=== PATIENT | female | born 1985 ===

== ENCOUNTER 2018-05-15 06:21 | Day surgery (SDC) | payer OTHER ==
[2018-05-07 16:43] VITALS: BMI 56.1
[2018-05-15] MEDS ORDERED: Lactated Ringer's 1,000 ML IV ONE (07:25)
[2018-05-15] MEDS ORDERED: Propofol 10 mg/ml Inj (20 ML) ONE (07:26)
[2018-05-15] MEDS ORDERED: Lidocaine 4% (Laryng-O-Jet) Kit MM ONE ×2 (07:26→08:10)
[2018-05-15] MEDS ORDERED: Succinylcholine Chloride 20 mg/ml Syr (5 ml) IV ONE (07:26)
[2018-05-15] MEDS ORDERED: Midazolam 2 MG/2 ML VIAL ONE (07:26)
[2018-05-15] MEDS ORDERED: Ropivacaine 0.5% 30ML IV ONE (07:29)
--- NOTE | 2018-05-15 07:35 | CP.SDSHP ---
Same Day Surgery H & P - History Proposed Procedure: L ankle arthroscopy with left posterior tibial tendon PRP injection Pre-Op Diagnosis: L ankle arthritis, left posterior tibial tendonitis, left lateral ligament sprain, plantar fasciitis - Previous Medical/Surgical History Previous Surgical History: section - Allergies Allergies: Allergies No Known Allergies Allergy (Verified 05/07/18 16:43) - Physical Exam Vital Signs: Vital Signs 05/15/18 07:05 Temperature 98.5 F Pulse Rate 55 L Respiratory 20 Rate Blood Pressure 153/77 H O2 Sat by Pulse 98 Oximetry Mental Status: Alert & Oriented x3 Neuro: WNL Heart: WNL Lungs: WNL GI: WNL - Impression Impression: Pt was seen and examined in SDS. Pt NPO status was confirmed. All pre-op testing and clearance in chart. Pt has exhausted all conservative treatment at this time and is opting for surgical intervention. Pt was explained procedure and post-operative course. All pt's questions were answered to satisfaction. No guarantees were made. Pt understands all risks, benefits and complications of procedure. Pt will follow-up with Dr. Bruce within 1 week of surgery Pt. Evaluated Today:Candidate for Anesthesia & Procedure: Yes - Date & Time Date: 05/15/18 Time: 07:40 Short Stay Discharge - Short Stay Discharge Admitting Diagnosis/Reason for Visit: LEFT ANKLE PAIN Disposition: HOME/ ROUTINE Additional Instructions (Diet, Activity): -Patient in good/stable condition for discharge home -Pt to resume medications per medical reconciliation -Resume regular diet -Please keep dressing clean, dry, & intact to surgical site -Use plastic bag over bandage for showering -Wear post op shoe at all times when ambulating -Call clinic if you see signs of infection (redness, swelling, malodor) -Please make an appointment to see Dr. Bruce in office/clinic within 1 week for post-op check Progress Note/Discharge Note with Instructions: - Patient evaluated bedside in recovery s/p left ankle arthroscopy with posterior tibial tendon PRP injection - After surgical procedure patient in NAD - (+) Void, (+) Appetite - Capillary refill time <3s and NVS intact. - Patient denies complaints at this time. - Post operative instructions and plan of care explained to patient at length. - Patient. acknowledges verbal understanding. - Patient stable for DC per podiatric surgery
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
[2018-05-15] MEDS ORDERED: Lidocaine 1% w Epi 1:100,000 Inj ONE (07:44)
[2018-05-15] MEDS ORDERED: MethylPREDNISolone Depo 40 mg/ml Inj ONE (09:31)
[2018-05-15] MEDS ORDERED: Bupivacaine 0.5% Inj(30mL) ONE (09:32)
[2018-05-15] MEDS ORDERED: Bupivacaine HCl 0.5% PF (30 ml) Inj ONE (09:33)
[2018-05-15] MEDS ORDERED: Oxycodone/Acetaminophen 5/325 mg Tab PO PRN ×2 (09:52)
[2018-05-15] MEDS ORDERED: HYDROmorphone 0.5 mg/0.5 ml ISec IVP PRN (09:56)
--- NOTE | 2018-05-15 09:56 | PCM.SURG1 ---
Surgeon's Initial Post Op Note - Surgeon's Notes Surgeon: ROSALINDA GonzalezM [employer] Dispatcher: ROSALINDA FernandoM PGY-3; ROSALINDA LandaM PGY-2 Type of Anesthesia: General Endo, Local Anesthesia Administered By: Dr. Jeanette Monahan MD Pre-Operative Diagnosis: 1) synovitis of L ankle joint. 2) posterior tibial tendonitis L foot. 3) sprain of anterior talofibular ligament L ankle. 4) plantar fasciitis L foot Operative Findings: see op note Post-Operative Diagnosis: same Operation Performed: 1) arthroscopic debridement of left ankle joint synovitits. 2) PRP injection posterior tibial tendon left foot. 3) PRP injection anterior talofibular ligament left ankle. 4) steroid injection plantar fasciitis left foot Specimen/Specimens Removed: none Estimated Blood Loss: EBL {In ML}: 5 Blood Products Given: N/A Drains Used: No Drains Post-Op Condition: Good Date of Surgery/Procedure: 05/15/18 Time of Surgery/Procedure: 08:00
[2018-05-15] MEDS ORDERED: Lactated Ringer's 1,000 ML IV SCH (10:00)
[2018-05-15 10:41] VITALS: PULSE 56
[2018-05-15 11:02] VITALS: RESP 18
[2018-05-15 11:22] VITALS: O2SAT 98
[2018-05-15] MEDS ORDERED: Oxycodone/Acetaminophen 5/325 mg Tab PO ONE (11:55)
[2018-05-15 12:32] VITALS: BP 141/90; TEMP 98.3
--- NOTE | 2018-05-19 08:24 | OP ---
PROCEDURE DATE: 05/15/2018 SURGEON: Anni Emanuel MD ASSISTANTS: Dr. Velázquez, PGY-3; Dr. Gilliam, PGY-2. ANESTHESIA: General. PREOPERATIVE DIAGNOSES: 1. Left ankle arthritis. 2. Left posterior tibial tendonitis. 3. Left lateral ankle sprain. 4. Left plantar fascitis. POSTOPERATIVE DIAGNOSES: 1. Left ankle arthritis. 2. Left posterior tibial tendonitis. 3. Left lateral ankle sprain. 4. Left plantar fascitis. PATHOLOGY: None. PROCEDURE: 1. Left ankle arthroscopy with synovectomy. 2. Left posterior tibial tendon injection of platelet-rich plasma. 3. Left lateral ligament injection of platelet-rich plasma. 4. Left plantar fascitis injection including 1 mL of 40 mg of Depo and 0.5% Marcaine plain. COMPLICATIONS: None. CONDITION: Stable. ESTIMATED BLOOD LOSS: Minimum. DESCRIPTION OF PROCEDURE: The patient was brought into the operating room and placed on the operating table in a supine position. After anesthesia was obtained, approximately 10 mL of 1% lidocaine with epinephrine was injected into the left ankle joint. The left ankle was then draped and prepped aseptically. At this point, the medial and the lateral portals were marked. Next, a small incision was made at the medial portal. Blunt dissection to the capsule was performed. We protected the superficial peroneal nerve branches. On the inspection of the ankle joint with the camera, it was noted that the patient had severe arthritis with a large amount of synovitis. There was no evidence of loose body noted. At this point, we went ahead with shaver to remove debris and synovitis from the joint. Next, once satisfactory results were achieved, all instruments were removed from the ankle joint. The ankle joint was irrigated with copious amount of normal saline solution. Next, the wound sites were closed with 4-0 Nylon suture. Approximately, 4 mL of PRP was injected into the ankle joint as well as the posterior tibial tendon sheath as well as the lateral ligaments of the left foot. The wounds were then dressed with 4 x 4 gauze, Tegaderm, and Carl bandage prior to application of 1 mL of 40 mg Depo was injected into the plantar fascia at the area of most tenderness. Next, approximately 2 mL of 0.5% Marcaine plain was administered to the plantar fascia at the area of most tenderness. An 8 mL of 0.5% Marcaine plain was administered for an ankle block. Next, Carl bandage was applied to the left foot and ankle. The patient was placed in a CAM boot. The patient tolerated the procedure and anesthesia well with no complications. The patient will be discharged home to follow up with me on Friday. The patient was told to contact me as soon as possible if any complication arises. Anni Emanuel MD
== END 2018-05-15 12:15 | disposition home or self-care (01) ==
LOC: H.OPSURG 06:21
PROVIDERS: ATTEND Podiatrist Foot & Ankle Surgery
DX: M19.072 Primary osteoarthritis, left ankle and foot (principal); M65.872 Other synovitis and tenosynovitis, left ankle and foot; F32.9 Major depressive disorder, single episode, unspecified; F41.9 Anxiety disorder, unspecified; I10 Essential (primary) hypertension; M72.2 Plantar fascial fibromatosis; M76.822 Posterior tibial tendinitis, left leg
CPT/HCPCS: 0232T; 29897; J0690; J1030; J2001; J2250; J2405; J2704; J2765; J3010; J7030; J7120